=== PATIENT | female | born 1960 | race Caucasian/White ===

== ENCOUNTER 2018-10-04 15:23 | Emergency (ER) | payer BC ==
[2018-10-04 16:05] LABS: CHLORIDE,CL 100 mEq/L (98-106); SODIUM,NA 136 mEq/L (136-145)
[2018-10-04 16:39] VITALS: BP 117/75
--- NOTE | 2018-10-04 18:17 | EDM.PDOC ---
ED HPI GENERAL MEDICAL PROBLEM - General Chief Complaint: Chest Pain Stated Complaint: chest pain Time Seen by Provider: 10/04/18 15:45 Source of Information: Reports: Patient History Limitations: Reports: No Limitations - History of Present Illness INITIAL COMMENTS - FREE TEXT/NARRATIVE: Stacy is a 58 yo female who presents to the ED via private vehicle with complaints of sharp chest pains that have subsided. 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 She states she was feeling fine and when she went to get in it afterwards she developed a sharp pain that radiated around her right breast, more so than left. She admits the pain lasted for about 10-15 minutes. In that time she did go to the clinic in [place] and she felt really warm. Erica Douglas recommended ambulance transfer and work up in the ED. She declined ambulance transfer and a coworker drove her up to the ED. She thinks it was indigestion because she had salsa this afternoon and has had two episodes this winter. She states the episodes this winter were a lot worse. She denies feeling sweaty and states that was likely a hot flash. Currently asymptomatic. Duration: Resolved Prior to Arrival Location: Reports: Chest Quality: Reports: Same as Previous Episode, Sharp Associated Symptoms: Reports: No Other Symptoms - Related Data Allergies Allergy/AdvReac Type Severity Reaction Status Date / Time No Known Allergies Allergy Verified 10/04/18 15:35 Home Meds: Home Meds FLUoxetine HCl [Fluoxetine HCl] 20 mg PO DAILY 10/04/18 [History] Lactobacillus Acidophilus [Probiotic] 1 tab PO BEDTIME 10/04/18 [History] Past Medical History Cardiovascular History: Reports: Heart Murmur Genitourinary History: Reports: None [employer] History: Reports: Musculoskeletal History: Reports: None Psychiatric History: Reports: Anxiety Hematologic History: Reports: Iron Deficiency - Past Surgical History HEENT Surgical History: Reports: GAYLEIK Cardiovascular Surgical History: Reports: None GI Surgical History: Reports: Cholecystectomy, Colonoscopy Female Surgical History: Reports: Section, Tubal Ligation Musculoskeletal Surgical History: Reports: Other (See Below) Other Musculoskeletal Surgeries/Procedures:: "growth removed from foot" Social & Family History - Family History Family Medical History: Noncontributory - Tobacco Use Smoking Status *Q: Former Smoker Used Tobacco, but Quit: Yes Month/Year Tobacco Last Used: 30yrs ago - Caffeine Use Caffeine Use: Reports: Coffee - Recreational Drug Use Recreational Drug Use: No ED ROS GENERAL - Review of Systems Review Of Systems: See Below Constitutional: Denies: Fever, Chills, Weakness, Decreased Appetite HEENT: Reports: No Symptoms Respiratory: Denies: Shortness of Breath, Wheezing, Cough Cardiovascular: Reports: Chest Pain (resolved). Denies: Lightheadedness, Palpitations, Syncope GI/Abdominal: Reports: Constipation. Denies: Bloody Stool, Diarrhea, Nausea, Vomiting : Reports: No Symptoms Musculoskeletal: Reports: Back Pain (resolved, radiating pain) Skin: Reports: No Symptoms Neurological: Reports: No Symptoms ED EXAM, GENERAL - Physical Exam Exam: See Below Exam Limited By: No Limitations General Appearance: Alert, WD/WN, No Apparent Distress Ears: Normal External Exam, Normal Canal, Hearing Grossly Normal, Normal TMs Nose: Normal Inspection, No Blood Throat/Mouth: Normal Inspection, Normal Lips, Normal Teeth, Normal Gums, Normal Oropharynx, Normal Voice, No Airway Compromise Head: Atraumatic, Normocephalic Neck: Normal Inspection, Supple, Non-Tender, Full Range of Motion Respiratory/Chest: No Respiratory Distress, Lungs Clear, Normal Breath Sounds, No Accessory Muscle Use, Chest Non-Tender Cardiovascular: Normal Peripheral Pulses, Regular Rate, Rhythm, No Edema, No Murmur GI/Abdominal: Normal Bowel Sounds, No Organomegaly, No Distention, No Mass, Tender (mild epigastric tenderness) Neurological: Alert, Oriented, Normal Cognition, No Motor/Sensory Deficits Psychiatric: Normal Affect, Normal Mood Skin Exam: Warm, Dry, Intact, Normal Color, No Rash EKG INTERPRETATION EKG Date: 10/04/18 Rhythm: NSR Comparison: NA - No Prior EKG Course - Vital Signs Last Recorded V/S: Last Vital Signs Temp 97.6 F 10/04/18 15:33 Pulse 51 L 10/04/18 16:38 Resp 16 10/04/18 16:38 BP 117/75 10/04/18 16:38 Pulse Ox 98 10/04/18 16:38 - Orders/Labs/Meds Orders: Active Orders 24 hr Category Date Time Status Chest 2V [CR] Stat Exams 10/04/18 15:32 Taken Labs: Laboratory Tests 10/04/18 10/04/18 10/04/18 Range/Units 15:32 15:32 15:32 WBC 7.8 (5.0-10.0) 10^3/uL RBC 4.22 (4.00-5.50) 10^6/uL Hgb 13.2 (12.0-16.0) g/dL Hct 38.7 (37.0-47.0) % MCV 91.7 (82.0-94.0) fL MCH 31.3 (27.0-32.0) pg MCHC 34.1 (33.0-38.0) g/dL RDW Coeff of Javier 12.7 (11.0-15.0) % Plt Count 246 (150-400) 10^3/uL Neut % (Auto) 63.2 (35-85) % Lymph % (Auto) 24.5 (10-55) % [place] % (Auto) 9.1 (0-16) % Eos % (Auto) 2.8 (0-5) % Baso % (Auto) 0.4 (0-3) % Neut # (Auto) 4.96 (1.80-7.00) 10^3/uL Lymph # (Auto) 1.92 (1.00-4.80) 10^3/uL [place] # (Auto) 0.71 (0.00-0.80) 10^3/uL Eos # (Auto) 0.22 (0.00-0.45) 10^3/uL Baso # (Auto) 0.03 10^3/uL PT 10.5 (9.7-12.3) SEC INR 1.02 (0.92-1.18) Sodium 136 (136-145) mEq/L Potassium 3.8 (3.5-5.0) mEq/L Chloride 100 (98-106) mEq/L Carbon Dioxide 27 (21-32) mmol/L BUN 10 (7-18) mg/dL Creatinine 0.7 (0.6-1.0) mg/dL Est Cr Clr Drug Dosing 84.01 mL/min Estimated GFR (MDRD) > 60 (>=60) mL/min Glucose 91 (75-99) mg/dL Calcium 8.7 (8.4-10.1) mg/dL Lactate Dehydrogenase 157 (100-190) U/L Creatine Kinase 80 (21-215) U/L Troponin I < 0.017 (0.00-0.06) ng/mL Departure - Departure Time of Disposition: 17:05 Disposition: Home, Self-Care 01 Clinical Impression: Atypical chest pain Instructions: Nonspecific Chest Pain, [id number] Forms: ED Department Discharge Additional Instructions: 1) No definitive cause of chest pain 2) Recommend follow up with primary provider in 1-2 weeks. 3) May try TUMS at onset if would return 4) If pain returns, recommend reevaluation in ED as well. - Problem List & Annotations (1) Atypical chest pain SNOMED Code(s): 980719050 Code(s): R07.89 - OTHER CHEST PAIN Status: Acute - My Orders Last 24 Hours: My Active Orders 10/04/18 15:32 Chest 2V [CR] Stat - Assessment/Plan Last 24 Hours: My Active Orders 10/04/18 15:32 Chest 2V [CR] Stat Plan: Complete cardiac work up was unremarkable. Vital signs stable during entire time in ED. No return of symptoms. Discussed possible GI etiology. Will discharge home with further instructions.
== END 2018-10-04 17:05 | disposition home or self-care (01) ==
LOC: CC.ED 15:23
DX: R07.89 Other chest pain (principal); Z90.49 Acquired absence of other specified parts of digestive tract; Z87.891 Personal history of nicotine dependence
CPT/HCPCS: 36415; 71046; 80048; 82550; 83615; 84484; 85025; 85610; 93005; 99285-25